=== PATIENT | female | born 1960 | race Hispanic/Latino ===

== ENCOUNTER 2022-03-30 09:20 | Day surgery (SDC) | payer BC ==
[2022-03-24 12:22] LABS: BASOPHILS % (AUTO) 0.5 % (0.0-5.0); EOSINOPHILS % (AUTO) 1.8 % (0.0-8.0); HEMATOCRIT 42.4 % (36-48); LYMPHOCYTES % (AUTO) 40.2 % (21.0-51.0); MEAN CORPUSCULAR HEMOGLOBIN 30.3 pg (27.0-33.0); MEAN CORPUSCULAR HGB CONC 33.5 g/dL (32.0-36.0); MEAN CORPUSCULAR VOLUME 90.4 fL (79-99); MONOCYTES % (AUTO) 6.7 % (3.0-13.0); NEUTROPHILS % (AUTO) 50.7 % (40.0-77.0); PLATELET COUNT (AUTO) 237 K/uL (130-400); RED BLOOD CELL COUNT(AUTO) 4.69 MIL/uL (4.00-5.50); RED CELL DISTRIBUTION WIDTH 12.7 % (11.0-15.5); WHITE BLOOD COUNT (AUTO) 7.8 K/uL (4.8-10.8)
[2022-03-24 12:30] LABS: CREATININE 0.7 mg/dL (0.5-1.5); POTASSIUM 4.5 mmol/L (3.5-5.1)
[2022-03-29 14:42] VITALS: BP 140/73
[~2022-03-30] VITALS: Ht 157.5 cm; Wt 71.3 kg
[2022-03-30] VITALS (20 sets, daily range): BP systolic 126–147; BP diastolic 57–75
[~2022-03-30 09:20] MED LIST: CEFAZOLIN SODIUM 2 GM VIAL IVPB SCH; ESTR42.53 VG; LACTATED RINGERS 1000ML 1,000 ML IV SCH; LEVO88CA4 PO; PANT20TA18 PO
[2022-03-30] MEDS ORDERED: CEFAZOLIN SODIUM 1 GM VIAL ONE (09:58)
[2022-03-30] MEDS ORDERED: ROPIVACAINE 0.5% 5MG/ML 30ML IJ ONE (10:25)
[2022-03-30] MEDS ORDERED: LIDOCAINE PF 100MG/5ML (2%) SYRINGE 5ML ONE (12:03)
[2022-03-30] MEDS ORDERED: GLYCOPYRROLATE 1 MG/5 ML SYRINGE ONE (12:03)
[2022-03-30] MEDS ORDERED: FENTANYL CITRATE PF 50 MCG/1 ML 2ML VIAL ONE (12:03)
[2022-03-30] MEDS ORDERED: MIDAZOLAM HCL 1 MG/ML 2ML VIAL ONE (12:03)
[2022-03-30] MEDS ORDERED: PROPOFOL 10 MG/ML 20ML VIAL IV ONE (12:03)
[2022-03-30] MEDS ORDERED: CEFAZOLIN SODIUM 2 GM VIAL IVPB ONE (12:36)
[2022-03-30] MEDS ORDERED: ROCURONIUM 10MG/1ML SYR 10 MG/ML ML ONE (12:57)
[2022-03-30] MEDS ORDERED: NEOSTIGMINE 5MG/5ML SYR IV ONE (14:39)
[2022-03-30] MEDS ORDERED: ONDANSETRON 4MG INJ ONE (14:57)
== END 2022-03-30 18:00 | disposition home or self-care (01) ==
LOC: DAH 09:20
PROVIDERS: ATTEND Orthopaedic Surgery
DX: M75.121 Complete rotator cuff tear or rupture of right shoulder, not specified as traumatic (principal); Z20.822 Contact with and (suspected) exposure to COVID-19; K21.9 Gastro-esophageal reflux disease without esophagitis; Z98.890 Other specified postprocedural states; Z98.891 History of uterine scar from previous surgery; Z90.89 Acquired absence of other organs
CPT/HCPCS: 80048; 85025; 87426; 36415; 93005; 87641; 29827; 64415; 76942; A4663; A6207; J7120 ×2; J3010; J0690 ×2; J3490; J2710; J2001; J2250; J2704; J2405; J2795; A4649 ×4; C1713; A5120; A4215; A4223; A4222; A4221; A4600